=== PATIENT | female | born 1985 | race Two or more races ===

== ENCOUNTER → 2021-01-20 | Outpatient (CLI) | payer BC ==
[~2021-01-20] MED LIST: IOHEXOL 300 MG/ML 50 ML VIAL. ONE
--- NOTE | 2021-01-20 14:49 | RAD ---
EXAM: Hysterosalpingogram. HISTORY: Secondary infertility. TECHNIQUE: The risks of the procedure were discussed with the patient and written and verbal consent was obtained. A timeout was performed. The patient was placed in a supine position on the fluoroscopy table and a vaginal speculum was inserted. The cervix was identified and cleansed with Betadine. A b alloon tip catheter was then advanced into the endometrial cavity and water-soluble contrast was inje cted during fluoroscopic imaging. Images were obtained in multiple obliquities. The catheter was ulysses latisha. The patient tolerated the procedure without complication. 7 fluoroscopic images were obtained fo r total fluoroscopy time of 1.1 minute. COMPARISON: None. FINDINGS: There is contrast opacification of the uterine cavity, demonstrating irregular cavity katherine ns suggesting the presence of synechiae. This is predominantly along the superior aspect of the endom etrial cavity. This appears to involve the bilateral cornu. There is delayed contrast opacification o f the left fallopian tube with trace spillage of contrast into the left peritoneal cavity. There is c ontrast opacification of the proximal aspect of the right fallopian tube. The distal aspect of the tu be is unopacified and there is no free spillage into the peritoneal cavity. IMPRESSION: 1. 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 This appears to invol ve the bilateral cornu. This can be further assessed with hysteroscopy. 2. Delayed contrast opacification of the left fallopian tube and trace spillage of contrast from the left fallopian tube into the peritoneal cavity. 2. Suspected obstruction of the distal right fallopian tube. Electronically signed by: Anayeli Castillo MD (01/20/2021 2:47 PM) [id number]
== END | disposition home or self-care (01) ==
LOC: RAD 13:54
PROVIDERS: ATTEND Obstetrics & Gynecology
DX: N94.6 Dysmenorrhea, unspecified (principal)
CPT/HCPCS: 58340; 74740